=== PATIENT | male | born 1965 | race Caucasian/White ===

== ENCOUNTER 2016-12-02 22:29 | Emergency (ER) | payer OTHER ==
[2016-12-02 22:34] VITALS: TEMP 98.1
[2016-12-02 23:49] LABS: % IMMATURE GRANULYOCYTES 0.2 % (0.0-1.1); ABSOLUTE IMMATURE GRANULOCYTES 0.02 10^3/uL (0.00-0.10); ADD DIFF? NO; ADD MORPH? NO; ADD SCAN? NO; ATYPICAL LYMPHOCYTE FLAG 0 (0-99); FRAGMENT RBC FLAG 0 (0-99); HEMATOCRIT 43.8 % (40.0-51.0); HEMOGLOBIN 14.8 g/dL (13.7-17.5); LEFT SHIFT FLG 0 (0-99); LIPEMIA HEMOLYSIS FLAG 90 (0-99); MEAN CELL HEMOGLOBIN 30.9 pg (27.9-34.1); MEAN CELL HEMOGLOBIN CONCENTR. 33.8 g/dL (32.4-36.7); MEAN CELL VOLUME 91.4 fL (81.5-99.8); MEAN PLATELET VOLUME 11.9 fL (8.7-11.7); PLATELET CLUMPS FLAG 0 (0-99); PLATELET COUNT 209 10^3/uL (150-400); RED BLOOD CELL COUNT 4.79 10^6/uL (4.40-6.38); RED CELL DISTRIBUTION WIDTH 13.9 % (11.5-15.2)
[2016-12-03 00:03] LABS: ALANINE AMINOTRANSFERASE 31 IU/L (21-72); ALBUMIN 4.6 g/dL (3.5-5.0); ALKALINE PHOSPHATASE 61 IU/L (38-126); ANION GAP 13 mEq/L (8-16); ASPARTATE AMINOTRANSFERASE 39 IU/L (17-59); BILIRUBIN,TOTAL 0.9 mg/dL (0.1-1.4); CALCIUM 10.2 mg/dL (8.5-10.4); CARBON DIOXIDE 27 mEq/l (22-31); CHLORIDE 106 mEq/L (97-110); CREATININE 1.2 mg/dL (0.7-1.3); GLOMERULAR FILTRATION RATE > 60; GLUCOSE 79 mg/dL (70-100); SODIUM 146 mEq/L (134-144); TOTAL PROTEIN 7.5 g/dL (6.3-8.2)
[2016-12-03] MEDS ORDERED: IOPAMIDOL (ISOVUE-300) 100 ML BTL IV ONE (00:07)
--- NOTE | 2016-12-03 00:07 | EDPHY ---
H & P Stated Complaint: RUQ ABD PAIN FOR PAST 18 MONTHS, WORKED UP NO CAUSE Time Seen by Provider: 12/02/16 23:25 HPI/ROS: HPI The patient presents with right-sided abdominal pain which has been present for the last 18 months which is intermittent, located from his right anterior ribcage to his right lower quadrant. It seems to be episodic though never completely resolved. The patient is achy in nature and not associated with any other symptoms. He has been evaluated at several ERs in [facility]. He was diagnosed with possible kidney stones. He says that his testing of his gallbladder was normal. He is working with his primary care doctor in you [place] to determine the cause of the pain. She suspects it could be related to angioedema which she has a history of as a child.. REVIEW OF SYSTEMS Constitutional: No fever, no chills. Eyes: No discharge. ENT: No sore throat. Cardiovascular: No chest pain, no palpitations. Respiratory: No cough, no shortness of breath. Gastrointestinal: See HPI Genitourinary: No hematuria. Musculoskeletal: No back pain. Skin: No rashes. Neurological: No headache. 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, lives in [place] usually, because his daughter lives here PHYSICAL General Appearance: Alert, no distress Eyes: Pupils equal and round no pallor or injection ENT, Mouth: Mucous membranes moist Respiratory: There are no retractions, lungs are clear to auscultation Cardiovascular: Regular rate and rhythm Gastrointestinal: Abdomen is soft and non-tender, no masses, bowel sounds normal Neurological: A&O, moves all extremities Skin: Warm and dry, no rashes Musculoskeletal: Neck is supple non tender Extremities: symmetrical, full range of motion Psychiatric: Patient is oriented X 3, there is no agitation Source: Patient Exam Limitations: No limitations - Personal History Current Tetanus/Diphtheria Vaccine: Yes Current Tetanus Diphtheria and Acellular Pertussis (TDAP): Yes - Medical/Surgical History Hx Asthma: Yes Hx Chronic Respiratory Disease: No Hx Diabetes: No Hx Cardiac Disease: No Hx Renal Disease: No Hx Cirrhosis: No Hx Alcoholism: No Hx HIV/AIDS: No Hx Splenectomy or Spleen Trauma: No Other PMH: DENIES - Social History Smoking Status: Never smoked Constitutional: Initial Vital Signs Temperature (C) 36.7 C 12/02/16 22:32 Heart Rate 88 12/02/16 22:32 Respiratory Rate 18 12/02/16 22:32 Blood Pressure 142/94 H 12/02/16 22:32 O2 Sat (%) 96 12/02/16 22:32 O2 Delivery Mode Room Air Allergies/Adverse Reactions: No Known Allergies Allergy (Unverified 12/02/16 22:34) Home Medications: Medication Instructions Recorded Albuterol Hfa Anes Only [Proair 12/02/16 Hfa Icu (*)] Medical Decision Making - Diagnostics Imaging: CT scan of abdomen with IV contrast Impression: 1. Postoperative changes presumably related to remote bariatric surgery with the distal end of the tube positioned in the right midabdomen at the level of the tip of the liver and there is some edema in the fat adjacent to the tip of the tube. Discussed with Dr. Arvizu of Radiology. ED Course/Re-evaluation: The patient was stable throughout his time in the emergency room. Labs were checked and were unremarkable. CT scan was performed and did show a tube from previous lap band surgery in his right mid abdomen. There is no sign of infection, no fluid collection. This could possibly be the cause of his symptoms given his normal evaluation otherwise. The patient says that he tried to see his bariatric surgeon, however he is retired. I explained that perhaps if the tube is removed, his symptoms could be improved. I have offered to refer him to 1 of our local surgeons, however he declines. He says he would like to follow up in [place] instead. He is relieved to know that he does not have cancer. He voiced some concern that I was not taking his complaints seriously and asked that I "rip out his IV". He will be discharged from the emergency room, I will make him a CD of his images that he can take to his doctor and I have also reviewed the CT scan with him. Differential Diagnosis: This is a 51-year-old man with right-sided abdominal pain which has been present for the last 18 months intermittently. On exam, he is mildly tender. He has had several workups in a variety of emergency rooms. He says he has never had a CT scan for this but has had an ultrasound which was unrevealing. He is working with his PMD because of this ongoing pain. Differential diagnosis includes biliary colic, kidney stone, musculoskeletal pain. - Data Points Laboratory Results: Laboratory Results 12/02/16 22:45 12/02/16 22:45 12/02/16 12/02/16 22:45 22:45 WBC 8.99 10^3/uL 10^3/uL (3.80-9.50) RBC 4.79 10^6/uL 10^6/uL (4.40-6.38) Hgb 14.8 g/dL g/dL (13.7-17.5) Hct 43.8 % % (40.0-51.0) MCV 91.4 fL fL (81.5-99.8) MCH 30.9 pg pg (27.9-34.1) MCHC 33.8 g/dL g/dL (32.4-36.7) RDW 13.9 % % (11.5-15.2) Plt Count 209 10^3/uL 10^3/uL (150-400) MPV 11.9 fL H fL (8.7-11.7) Neut % (Auto) 66.6 % % (39.3-74.2) Lymph % (Auto) 22.6 % % (15.0-45.0) [place] % (Auto) 7.7 % % (4.5-13.0) Eos % (Auto) 2.0 % % (0.6-7.6) Baso % (Auto) 0.9 % % (0.3-1.7) Nucleat RBC Rel Count 0.0 % % (0.0-0.2) Absolute Neuts (auto) 5.99 10^3/uL 10^3/uL (1.70-6.50) Absolute Lymphs (auto) 2.03 10^3/uL 10^3/uL (1.00-3.00) Absolute Monos (auto) 0.69 10^3/uL 10^3/uL (0.30-0.80) Absolute Eos (auto) 0.18 10^3/uL 10^3/uL (0.03-0.40) Absolute Basos (auto) 0.08 10^3/uL 10^3/uL (0.02-0.10) Absolute Nucleated RBC 0.00 10^3/uL 10^3/uL (0-0.01) Immature Gran % 0.2 % % (0.0-1.1) Immature Gran # 0.02 10^3/uL 10^3/uL (0.00-0.10) Sodium 146 mEq/L H mEq/L (134-144) Potassium 4.0 mEq/L mEq/L (3.5-5.2) Chloride 106 mEq/L mEq/L (97-110) Carbon Dioxide 27 mEq/l mEq/l (22-31) Anion Gap 13 mEq/L mEq/L (8-16) BUN 19 mg/dL mg/dL (7-23) Creatinine 1.2 mg/dL mg/dL (0.7-1.3) Estimated GFR > 60 Glucose 79 mg/dL mg/dL (70-100) Calcium 10.2 mg/dL mg/dL (8.5-10.4) Total Bilirubin 0.9 mg/dL mg/dL (0.1-1.4) AST 39 IU/L IU/L (17-59) ALT 31 IU/L IU/L (21-72) Alkaline Phosphatase 61 IU/L IU/L (38-126) Total Protein 7.5 g/dL g/dL (6.3-8.2) Albumin 4.6 g/dL g/dL (3.5-5.0) Departure - Departure Disposition: Home, Routine, Self-Care Clinical Impression: RUQ abdominal pain, LAP-BAND surgery status Condition: Good Instructions: Acute Abdominal Pain (ED) Additional Instructions: As we have discussed, there is a tube from your prior operation which is in the right side of your abdomen that may be causing your symptoms. Please follow-up with your primary care doctor about this so you can get a referral to a bariatric surgeon. It is possible if the tube was removed he will feel better. Referrals: MECHE OLMOS [Other] - As per Instructions
[2016-12-03 00:43] VITALS: PULSE 74; RESP 16
[2016-12-03 01:24] VITALS: BP 128/74; O2SAT 96
== END 2016-12-03 01:24 | disposition home or self-care (01) ==
DX: R10.11 Right upper quadrant pain (principal); J45.909 Unspecified asthma, uncomplicated; Z98.84 Bariatric surgery status
CPT/HCPCS: Q9967